=== PATIENT | female | born 1970 | race Caucasian/White ===

== ENCOUNTER 2018-07-15 10:16 | Outpatient (CLI) | payer BC ==
--- NOTE | 2018-07-30 18:44 | MMO ---
Bilateral MAMMO Bilat Screen [facility]DI. CLINICAL HISTORY: Patient is 47 years old and is seen for screening. The patient has no family history of breast cancer. The patient has no personal history of cancer. The patient has a history of right Excisional Biopsy in 2000 - benign. VIEWS: The views performed were: bilateral craniocaudal and bilateral mediolateral oblique. FILMS COMPARED: The present examination has been compared to a prior imaging study performed at [facility] [[email or web address] on 11/29/2012. This study has been interpreted with the assistance of computer-aided detection. MAMMOGRAM FINDINGS: There are scattered fibroglandular densities. There are no suspicious masses, suspicious calcifications, or new areas of architectural distortion. IMPRESSION: THERE IS NO MAMMOGRAPHIC EVIDENCE OF MALIGNANCY. A ROUTINE FOLLOW-UP MAMMOGRAM IN 1 YEAR IS RECOMMENDED. ACR BI-RADS Category 1 - Negative MAMMOGRAPHY NOTE: 1. A negative mammogram report should not delay a biopsy if a dominant of clinically suspicious mass is present. 2. Approximately 10% to 15% of breast cancers are not detected by mammography. 3. Adenosis and dense breasts may obscure an underlying neoplasm.
== END 2018-07-15 10:17 | disposition home or self-care (01) ==
LOC: SCSMAMMO 10:16
PROVIDERS: ATTEND Family Medicine
DX: Z12.31 Encounter for screening mammogram for malignant neoplasm of breast (principal)
CPT/HCPCS: 77067

== ENCOUNTER 2019-11-30 08:36 | Outpatient (CLI) | payer BC ==
--- NOTE | 2019-11-30 09:35 | MRI ---
MRI Cervical spine without contrast: HISTORY: Neck Pain COMPARISON: None FINDINGS: The craniocervical junction is unremarkable. No significant cord signal abnormality. Paravertebral soft tissues have a normal appearance and normal signal intensity. Normal signal intensity is demonstrated in the bone marrow. C1-2:No significant stenosis. C2-3: Mild uncinate process hypertrophy on the left small asymmetric disc protrusion. Mild left-sided neural foraminal narrowing is present. Central spinal canal and right neural foramen are patent. C3-4: There is no disc bulge or disc herniation. The central spinal canal and neural foramina are pat ent. C4-5: There is no disc bulge or disc herniation. The central spinal canal and neural foramina are pat ent. C5-6: Loss of intervertebral disc height. There is slight retrolisthesis of C5 on C6. A broad-based d isc osteophyte complex is present at this level. There is mild central canal narrowing with mild to moderate bilateral neural foraminal narrowing greater on the left. There is effacement of ventral sub arachnoid space. C6-7: Minimal disc osteophyte complex without central canal or neural foraminal narrowing. C7-T1: There is no disc bulge or disc herniation. The central spinal canal and neural foramina are pa tent. IMPRESSION: Disc degenerative changes at C5-6 level with mild retrolisthesis of C5 on C6. Findings result in mild to moderate bilateral neural foraminal narrowing greater on the left.
--- NOTE | 2019-11-30 10:25 | RAD ---
CERVICAL SPINE SERIES 3 VIEWS WITH FLEXION AND EXTENSION: Date: 11/30/2019 HISTORY: Neck pain with pain in left shoulder. FINDINGS: Vertebral bodies are normal in height. Severe disc narrowing is seen at C5-6. Retrolisthesis of C5 o n C6 of approximately 4.0 mm does appear to slightly reduce in flexion and appears slightly accentuat ed in extension. IMPRESSION: Severe disc narrowing at C5-6. Retrolisthesis at this level appears to decrease slightly in flexion a nd increase in extension. POS: JOHN
== END 2019-11-30 08:37 | disposition home or self-care (01) ==
LOC: SCSMRI 08:36
PROVIDERS: ATTEND Surgery
DX: M50.122 Cervical disc disorder at C5-C6 level with radiculopathy (principal); M48.02 Spinal stenosis, cervical region; M43.12 Spondylolisthesis, cervical region
CPT/HCPCS: 72040; 72141